=== PATIENT | female | born 1940 | race Caucasian/White ===

== ENCOUNTER → 2017-02-16 08:44 | Outpatient (CLI) | payer MEDICARE, OTHER | END | disposition home or self-care (01) | LOC: D.MRI 01-28 10:00 | DX: R42 Dizziness and giddiness (principal) ==

== ENCOUNTER → 2017-07-30 13:58 | Outpatient (CLI) | payer MEDICARE, OTHER | END | disposition home or self-care (01) | LOC: D.MRI 13:58 | DX: M54.16 Radiculopathy, lumbar region (principal) ==

== ENCOUNTER → 2017-09-10 15:37 | Outpatient (CLI) | payer MEDICARE, OTHER | END | disposition home or self-care (01) | LOC: D.US 09-07 14:30 | DX: E27.40 Unspecified adrenocortical insufficiency (principal) ==

== ENCOUNTER → 2017-09-25 09:59 | Outpatient (CLI) | payer MEDICARE, OTHER | END | disposition home or self-care (01) | LOC: D.MRI 09-21 08:00 | DX: R19.09 Other intra-abdominal and pelvic swelling, mass and lump (principal) ==

== ENCOUNTER 2017-11-28 10:55 | Emergency (ER) | payer MEDICARE, OTHER ==
[~2017-11-28] VITALS: Ht 157.5 cm; Wt 63.6 kg
[2017-11-28 11:16] VITALS: Ht 157.5 cm; Wt 63.6 kg
[2017-11-28] MEDS ORDERED: KLONOPIN0.5 MG PO (11:18)
[2017-11-28] MEDS ORDERED: MAXALT5 MG PO (11:18)
[2017-11-28 12:09] LABS: BASOPHILS 0.9 % (0-2); EOSINOPHILS 4.2 % (0-7); HEMATOCRIT 42.9 % (36.0-48.0); HEMOGLOBIN 14.2 g/dL (12-16); LYMPHOCYTES 47.1 % (15-50); MCH 31.1 pg (26.0-34.0); MCHC 33.1 g/dL (31.0-37.0); MCV 94.1 fL (80.0-100.0); MEAN PLATELET VOLUME 10.6 fL (7.4-10.4); MONOCYTES 9.4 % (2-11); NEUTROPHILS 38.4 % (40-80); PLATELET COUNT 266 10x3/uL (130-400); RBC 4.56 10x6/uL (4.00-5.40); RDW 12.7 % (11.5-14.5); WBC 4.3 10x3/uL (4.8-10.8)
[2017-11-28 12:40] LABS: ALBUMIN 3.8 g/dL (3.4-5.0); ANION GAP 11.9 mmol/L (8-16); BILIRUBIN - TOTAL 1.25 mg/dL (0.2-1.3); CALCIUM 9.1 mg/dL (8.5-10.1); CREATININE - SERUM 0.8 mg/dL (0.6-1.3); POTASSIUM - SERUM 3.9 mmol/L (3.5-5.1); PROTEIN - SERUM 7.1 g/dL (6.4-8.2)
[2017-11-28 14:35] VITALS: BP 168/87
== END 2017-11-28 14:36 | disposition home or self-care (01) ==
LOC: D.ER 10:55
PROVIDERS: Emergency Medicine
DX: R22.32 Localized swelling, mass and lump, left upper limb (principal)

== ENCOUNTER 2018-01-05 22:05 | Emergency (ER) | payer MEDICARE, OTHER ==
[~2018-01-05] VITALS: Ht 157.5 cm; Wt 63.6 kg
[~2018-01-05 22:05] MED LIST: KLONOPIN0.5 MG PO; MAXALT5 MG PO
[2018-01-05 22:13] VITALS: BP 173/105; Ht 157.5 cm; Wt 63.6 kg
[2018-01-06 00:29] LABS: BASOPHILS 0.3 % (0-2); EOSINOPHILS 0.3 % (0-7); HEMATOCRIT 41.4 % (36.0-48.0); HEMOGLOBIN 14.2 g/dL (12-16); IMMATURE GRANULOCYTES 0.3 % (0-5); LYMPHOCYTES 9.8 % (15-50); MCH 31.6 pg (26.0-34.0); MCHC 34.3 g/dL (31.0-37.0); MEAN PLATELET VOLUME 10.1 fL (7.4-10.4); MONOCYTES 4.1 % (2-11); NEUTROPHILS 85.2 % (40-80); PLATELET COUNT 293 10x3/uL (130-400); RDW 13.3 % (11.5-14.5)
[2018-01-06 00:53] LABS: ALBUMIN 3.7 g/dL (3.4-5.0); BILIRUBIN - TOTAL 0.96 mg/dL (0.2-1.3); CALCIUM 8.6 mg/dL (8.5-10.1); CARBON DIOXIDE 24.7 mmol/L (21.0-32.0); POTASSIUM - SERUM 3.7 mmol/L (3.5-5.1); PROTEIN - SERUM 7.4 g/dL (6.4-8.2)
== END 2018-01-06 01:07 | disposition left against medical advice (07) ==
LOC: D.ER 22:05
PROVIDERS: Family Medicine
DX: R22.32 Localized swelling, mass and lump, left upper limb (principal); Z85.3 Personal history of malignant neoplasm of breast

== ENCOUNTER 2018-01-07 19:06 | Emergency (ER) | payer MEDICARE, OTHER ==
[~2018-01-07] VITALS: Ht 157.5 cm; Wt 62.3 kg
[2018-01-07 19:13] VITALS: Ht 157.5 cm; Wt 62.3 kg
[2018-01-07 20:04] LABS: ALBUMIN 3.6 g/dL (3.4-5.0); ALKALINE PHOSPHATASE 94 U/L (46-116); ALT (SGPT) 25 U/L (10-68); BILIRUBIN - TOTAL 0.67 mg/dL (0.2-1.3); CALC OSMOLALITY 275 mosm/kg (275-300); CALCIUM 9.5 mg/dL (8.5-10.1); CHLORIDE - SERUM 103 mmol/L (98-107); GLUCOSE 96 mg/dL (74-106); POTASSIUM - SERUM 4.2 mmol/L (3.5-5.1); PROTEIN - SERUM 7.4 g/dL (6.4-8.2); SODIUM 138 mmol/L (136-145); UREA NITROGEN 13 mg/dL (7-18); eGFR NON AFRICAN AMERICAN 57 mL/min (90-120)
[2018-01-07 20:05] LABS: HEMATOCRIT 40.7 % (36.0-48.0); HEMOGLOBIN 13.9 g/dL (12-16); LYMPHOCYTES 47.7 % (15-50); MCH 31.2 pg (26.0-34.0); MCHC 34.2 g/dL (31.0-37.0); MCV 91.3 fL (80.0-100.0); MEAN PLATELET VOLUME 10.3 fL (7.4-10.4); NEUTROPHILS 39.5 % (40-80); PLATELET COUNT 258 10x3/uL (130-400); RBC 4.46 10x6/uL (4.00-5.40); RDW 12.8 % (11.5-14.5)
[2018-01-07 20:07] LABS: WBC 4.3 10x3/uL (4.8-10.8)
[2018-01-07 20:08] LABS: APTT 26.9 SECONDS (22.8-39.4); INR 0.99 (0.85-1.17); PROTIME 12.7 SECONDS (11.6-15.0)
[2018-01-07 20:10] LABS: TROPONIN-I < 0.017 ng/mL (0.000-0.060)
[2018-01-07 23:09] VITALS: BP 148/79
== END 2018-01-07 23:00 | disposition other institution (70) ==
LOC: D.ER 19:06
PROVIDERS: Family Medicine
DX: I63.9 Cerebral infarction, unspecified (principal)

== ENCOUNTER → 2018-04-09 10:08 | Outpatient (CLI) | payer MEDICARE, OTHER ==
[2018-01-07 19:13] VITALS: BMI 25.1
== END | disposition home or self-care (01) ==
LOC: D.US 10-12 13:00 → D.CT 14:00
DX: R07.9 Chest pain, unspecified (principal); N83.201 Unspecified ovarian cyst, right side